=== PATIENT | female | born 1990 | race Caucasian/White ===

== ENCOUNTER 2020-07-29 08:16 | Outpatient (CLI) | payer OTHER ==
[2020-07-29 13:45] LABS: SARS-CoV-2 PCR by NAA Not Detected (NotDetected)
== END 2020-07-29 08:17 | disposition home or self-care (01) ==
LOC: CSHLAB 08:16
PROVIDERS: ATTEND Obstetrics & Gynecology
DX: Z20.822 Contact with and (suspected) exposure to COVID-19 (principal)
CPT/HCPCS: 87635; U0003; U0005

== ENCOUNTER 2020-08-01 19:15 | Inpatient (IN) | payer OTHER ==
[2020-08-01] MEDS ORDERED: Butorphanol Tartrate 1 MG/ML VIAL SLOW IVP PRN (20:07)
[2020-08-01] MEDS ORDERED: Diphenoxylate HCl/Atropine Tablet PO PRN ×2 (20:07)
[2020-08-01] MEDS ORDERED: Acetaminophen 500 MG TAB PO PRN (20:07)
[2020-08-01] MEDS ORDERED: Carboprost 250 MCG/ML AMP IM PRN (20:07)
[2020-08-01] MEDS ORDERED: Lidocaine 1% (PF) 30 ML VIAL SC PRN (20:07)
[2020-08-01] MEDS ORDERED: Lactated Ringer's 1,000 ML IV SCH (20:07)
[2020-08-01] MEDS ORDERED: Misoprostol 200 MCG TAB PR PRN (20:07)
[2020-08-01] MEDS ORDERED: Methylergonovine 0.2 MG/ML VIAL IM PRN (20:07)
[2020-08-01] MEDS ORDERED: Ondansetron PF 4 MG/2 ML Vial IVP PRN (20:07)
[2020-08-01] MEDS ORDERED: Ibuprofen 800 MG TAB PO PRN (20:07)
[2020-08-01] MEDS ORDERED: hydrALAZINE 20 MG/ML VIAL SLOW IVP PRN (20:07)
[2020-08-01] MEDS ORDERED: Promethazine HCl 25 MG/ML VIAL IM PRN (20:07)
[2020-08-01 20:29] VITALS: BMI 35.3
[2020-08-01] MEDS ORDERED: NS w/ Oxytocin 30 units 500 ML IV PRN (20:34)
[2020-08-01] MEDS: Misoprostol 100 MCG TAB VAG SCH (21:29)
[2020-08-01] MEDS ORDERED: Fentanyl 4 mcg/Bup 0.1% Cadd 100 ML ONE (23:40)
[2020-08-02] MEDS ORDERED: Fentanyl 100 MCG/2 ML VIAL ONE (00:23)
[2020-08-02] MEDS ORDERED: Naloxone HCl 0.4 mg/ml Vial IVP PRN ×2 (00:40)
[2020-08-02] MEDS ORDERED: diphenhydrAMINE 50 MG/ML VIAL IVP PRN (00:40)
[2020-08-02] MEDS ORDERED: Acetaminophen 325 MG TAB PO PRN (00:40)
[2020-08-02] MEDS ORDERED: Promethazine HCl 25 MG/ML VIAL IM PRN (00:40)
[2020-08-02] MEDS ORDERED: Eucerin (Mineral Oil/Petrolatum,White) 30 gm Jar TOP PRN (00:40)
[2020-08-02] MEDS ORDERED: Ondansetron PF 4 MG/2 ML Vial IVP PRN (00:40)
[2020-08-02] MEDS ORDERED: Lactated Ringer's 500 ML IV PRN (00:40)
[2020-08-02] MEDS ORDERED: ePHEDrine 50 MG/ML VIAL SLOW IVP PRN (00:40)
[2020-08-02] MEDS ORDERED: Communication Order-Pharmacy FS SCH (00:45)
[2020-08-02] MEDS ORDERED: Fentanyl 4 mcg/Bupivacaine 0.1% Cassette 100 ML EPIDURAL SCH (00:45)
[2020-08-02] MEDS ORDERED: Oxytocin 10 UNITS/ML VIAL ONE (00:55)
[2020-08-02] MEDS ORDERED: Lidocaine 1% (PF) 30 ML VIAL ONE (00:56)
[2020-08-02] MEDS ORDERED: NS w/ Oxytocin 30 units 500 ML ONE (00:56)
[2020-08-02] MEDS ORDERED: Milk Of Magnesia 30 ML UDCUP PO PRN (01:45)
[2020-08-02] MEDS ORDERED: Adacel (T-DAP) 0.5 ML SYRINGE IM ONE (01:45)
[2020-08-02] MEDS ORDERED: Bisacodyl 10 MG SUPP PR PRN (01:45)
[2020-08-02] MEDS ORDERED: hydrALAZINE 20 MG/ML VIAL SLOW IVP PRN (01:45)
[2020-08-02] MEDS ORDERED: traMADol HCl 50 MG TAB PO PRN (01:45)
[2020-08-02] MEDS ORDERED: Preparation H Ointment 28 GM TUBE PR PRN (01:45)
[2020-08-02] MEDS ORDERED: diphenhydrAMINE 25 MG CAP PO PRN (01:45)
[2020-08-02] MEDS ORDERED: NS w/ Oxytocin 30 units 500 ML IV SCH (02:30)
[2020-08-02 03:41] LABS: HBSAg Index 0.11 S/CO (0-0.99); Hep B Surf Ag NonReactive S/CO (NonReactive)
[2020-08-02 03:42] LABS: Syphilis Antibody Nonreactive (Nonreactive); Syphilis Antibody Index 0.01 S/CO (<1.00 Non-Reactive)
[2020-08-02] MEDS: Ibuprofen 800 MG TAB PO SCH ×3 (04:36→21:46)
[2020-08-02] MEDS: Ferrous Sulfate 325 MG TAB PO SCH ×2 (07:57→16:54)
[2020-08-02] MEDS: Misoprostol 100 MCG TAB VAG SCH (08:50)
[2020-08-02 08:52] LABS: Hemoglobin 10.8 g/dL (12.0-15.5); Mean Corpuscular Hemoglobin 26.1 pg (27.0-33.0); Mean Corpuscular Volume 81.4 fl (81.6-98.3); Mean Platelet Volume 9.7 fl (7.4-10.4); Platelet Count 272 10x3/uL (150-450); RBC Distribution Width 14.6 % (11.5-14.5); Red Blood Cell (RBC) Count 4.14 10x6/uL (3.90-5.03); White Blood Cell (WBC) Count 10.1 10x3/uL (3.5-10.5)
[2020-08-02] MEDS: Prenatal Vitamin 1 TAB PO SCH (08:55)
[2020-08-02] MEDS: Docusate Calcium (SURFAK) 240 MG CAP PO SCH ×2 (08:55→21:45)
[2020-08-02] MEDS ORDERED: Bupivacaine 0.25% HCL 30 ML VIAL ONE (19:44)
[2020-08-02] MEDS ORDERED: Lanolin Ointment 7 GM TUBE TOP PRN (21:21)
[2020-08-03] MEDS: Ibuprofen 800 MG TAB PO SCH (05:41)
[2020-08-03 08:00] VITALS: TEMP 97.8
[2020-08-03] MEDS: Docusate Calcium (SURFAK) 240 MG CAP PO SCH (09:51)
[2020-08-03] MEDS: Prenatal Vitamin 1 TAB PO SCH (09:51)
[2020-08-03 11:17] VITALS: BP 105/66
[2020-08-03] MEDS: Ferrous Sulfate 325 MG TAB PO SCH (11:54)
== END 2020-08-03 16:10 | disposition home or self-care (01) | DRG 807 ==
LOC: CSHLD 19:40 → CSHPP 08-02 04:12
PROVIDERS: ADMIT Obstetrics & Gynecology; ATTEND Obstetrics & Gynecology
PROC: 10E0XZZ Delivery of Products of Conception, External Approach (ICD-10-PCS; principal; 2020-08-02)
PROC: 0HQ9XZZ Repair Perineum Skin, External Approach (ICD-10-PCS; 2020-08-02)
DX: O48.0 Post-term pregnancy (principal); Z37.0 Single live birth; Z3A.40 40 weeks gestation of pregnancy; Z20.822 Contact with and (suspected) exposure to COVID-19; O99.62 Diseases of the digestive system complicating childbirth; O99.344 Other mental disorders complicating childbirth; F41.9 Anxiety disorder, unspecified; F32.9 Major depressive disorder, single episode, unspecified; K21.9 Gastro-esophageal reflux disease without esophagitis; O70.0 First degree perineal laceration during delivery; Z79.899 Other long term (current) drug therapy
CPT/HCPCS: 51702; 85027; 86780; 86850; 86900; 86901; 87340; 87635; J2590; Q0163; S0020; U0003; U0005

== ENCOUNTER 2022-10-01 18:00 | Inpatient (IN) | payer BC ==
[2022-10-01] MEDS: Lactated Ringer's 1,000 ML IV SCH (19:45)
[2022-10-01] MEDS ORDERED: Ondansetron PF 4 MG/2 ML Vial IVP PRN (20:12)
[2022-10-01] MEDS ORDERED: hydrALAZINE 20 MG/ML VIAL SLOW IVP PRN (20:12)
[2022-10-01] MEDS ORDERED: HYDROcodone/Acetaminophen 5/325 mg Tablet PO PRN ×2 (20:12)
[2022-10-01] MEDS ORDERED: Methylergonovine 0.2 MG/ML VIAL IM PRN (20:12)
[2022-10-01] MEDS ORDERED: fentaNYL 50 mcg/mL 1 mL Vial SLOW IVP PRN (20:12)
[2022-10-01] MEDS ORDERED: Zolpidem Tartrate 5 MG TAB PO PRN (20:12)
[2022-10-01] MEDS ORDERED: Ibuprofen 800 MG TAB PO PRN (20:12)
[2022-10-01] MEDS ORDERED: Carboprost 250 MCG/ML AMP IM PRN (20:12)
[2022-10-01] MEDS ORDERED: Tranexamic Acid 1,000 MG/10 ML VIAL IVP PRN (20:12)
[2022-10-01] MEDS ORDERED: Acetaminophen 500 MG TAB PO PRN (20:12)
[2022-10-01] MEDS ORDERED: Lidocaine 1% (PF) 30 ML VIAL SC PRN (20:12)
[2022-10-01] MEDS ORDERED: Promethazine HCl 25 MG/ML VIAL IM PRN (20:12)
[2022-10-01] MEDS ORDERED: Misoprostol 200 MCG TAB PR PRN (20:12)
[2022-10-01] MEDS ORDERED: Diphenoxylate HCl/Atropine Tablet PO PRN ×2 (20:12)
[2022-10-01 20:14] VITALS: BMI 33.6
[2022-10-01] MEDS ORDERED: NS w/ Oxytocin 30 units 500 ML IV SCH ×2 (20:15)
[2022-10-01] MEDS ORDERED: HumaLOG 300 UNITS/3 ML VIAL SC PRN (20:17)
[2022-10-01] MEDS ORDERED: Dextrose 5% in Water 1,000 ML IV PRN (20:17)
[2022-10-01] MEDS ORDERED: Glucagon 1 MG/ML KIT IM PRN (20:17)
[2022-10-01] MEDS ORDERED: Dextrose 50% Abboject 50 ML SYRINGE SLOW IVP PRN (20:17)
[2022-10-01 20:21] LABS: Hemoglobin 11.6 g/dL (12.0-15.5); Mean Corpuscular HGB CONC 33.2 g/dL (32.0-36.0); Mean Corpuscular Hemoglobin 28.6 pg (27.0-33.0); Mean Platelet Volume 9.8 fl (7.4-10.4); Platelet Count 223 10x3/uL (150-450); RBC Distribution Width 13.2 % (11.5-14.5); Red Blood Cell (RBC) Count 4.06 10x6/uL (3.90-5.03); White Blood Cell (WBC) Count 8.6 10x3/uL (3.5-10.5)
[2022-10-01 20:50] LABS: HBSAg Index 0.13 S/CO (0-0.99); Hep B Surf Ag - L&D Non-Reactive S/CO (NonReactive)
[2022-10-01 22:59] LABS: Syphilis Antibody Nonreactive (Nonreactive); Syphilis Antibody Index 0.01 S/CO (<1.00 Non-Reactive)
[2022-10-02] MEDS ORDERED: fentaNYL/Ropivacaine Epidural 100 ML ONE (03:17)
[2022-10-02] MEDS: Lactated Ringer's 1,000 ML IV SCH (04:02)
[2022-10-02] MEDS ORDERED: fentaNYL 50 mcg/mL 1 mL Vial ONE (04:22)
[2022-10-02] MEDS ORDERED: Acetaminophen 325 MG TAB PO PRN (04:25)
[2022-10-02] MEDS ORDERED: Lactated Ringer's 500 ML IV PRN (04:25)
[2022-10-02] MEDS ORDERED: Moisturizing Cream (Eucerin) 113 GM JAR TOP PRN (04:25)
[2022-10-02] MEDS ORDERED: Naloxone HCl 0.4 mg/ml Vial IVP PRN ×2 (04:25)
[2022-10-02] MEDS ORDERED: Ondansetron PF 4 MG/2 ML Vial IVP PRN (04:25)
[2022-10-02] MEDS ORDERED: ePHEDrine Sulfate 50 MG/10 ML VIAL SLOW IVP PRN (04:25)
[2022-10-02] MEDS ORDERED: diphenhydrAMINE 50 MG/ML VIAL IVP PRN (04:25)
[2022-10-02] MEDS ORDERED: Promethazine HCl 25 MG/ML VIAL IM PRN (04:25)
[2022-10-02] MEDS ORDERED: fentaNYL 2 mcg/Ropivacaine 0.2% Epidural 100 ML CADD EPIDURAL SCH (04:30)
[2022-10-02] MEDS ORDERED: Communication Order-Pharmacy FS SCH (04:30)
[2022-10-02] MEDS ORDERED: diphenhydrAMINE 25 MG CAP PO PRN (07:48)
[2022-10-02] MEDS ORDERED: Bisacodyl 10 MG SUPP PR PRN (07:48)
[2022-10-02] MEDS ORDERED: Preparation H Ointment 28 GM TUBE PR PRN (07:48)
[2022-10-02] MEDS ORDERED: hydrALAZINE 20 MG/ML VIAL SLOW IVP PRN (07:48)
[2022-10-02] MEDS ORDERED: Benzocaine-Menthol 82.5 ML CAN TOP PRN (07:48)
[2022-10-02] MEDS ORDERED: Boostrix 0.5 ML (Tdap) VIAL (>/=7 yrs of age) IM ONE (07:48)
[2022-10-02] MEDS ORDERED: Milk Of Magnesia 30 ML UDCUP PO PRN (07:48)
[2022-10-02] MEDS ORDERED: traMADol HCl 50 MG TAB PO PRN (09:45)
[2022-10-02] MEDS: Ferrous Sulfate 325 MG TAB PO SCH ×2 (11:16→15:39)
[2022-10-02] MEDS: Docusate 100 MG CAP PO SCH ×2 (11:16→21:39)
[2022-10-02] MEDS: Prenatal Vitamin 1 TAB PO SCH (11:16)
[2022-10-02] MEDS: Ibuprofen 800 MG TAB PO SCH ×2 (13:30→21:39)
[2022-10-03] MEDS: Ibuprofen 800 MG TAB PO SCH ×3 (05:24→23:21)
[2022-10-03] MEDS: Docusate 100 MG CAP PO SCH ×2 (15:12→23:21)
[2022-10-04] MEDS: Ibuprofen 800 MG TAB PO SCH ×2 (06:25→16:20)
[2022-10-04 10:14] VITALS: BP 112/72; TEMP 99
[2022-10-04] MEDS: Prenatal Vitamin 1 TAB PO SCH (10:23)
[2022-10-04] MEDS: Docusate 100 MG CAP PO SCH (10:23)
== END 2022-10-04 18:30 | disposition home or self-care (01) | DRG 807 ==
LOC: CSHLD 18:54 → CSHPP 10-02 09:53
PROVIDERS: ADMIT Obstetrics & Gynecology; ATTEND Obstetrics & Gynecology
PROC: 10E0XZZ Delivery of Products of Conception, External Approach (ICD-10-PCS; principal; 2022-10-02)
DX: O24.420 Gestational diabetes mellitus in childbirth, diet controlled (principal); Z37.0 Single live birth; Z3A.39 39 weeks gestation of pregnancy
CPT/HCPCS: 36416; 51702; 85027; 86780; 86850; 86900; 86901; 87340; J2590; J7120

== ENCOUNTER 2024-12-11 08:03 | Outpatient (CLI) | payer BC | END 2024-12-11 08:04 | disposition home or self-care (01) | LOC: CSHULT 08:03 | PROVIDERS: ATTEND Family Medicine | DX: R10.11 Right upper quadrant pain (principal) | CPT/HCPCS: 76700 ==